=== PATIENT | male | born 1945 | race Caucasian/White ===

== ENCOUNTER → 2017-01-02 | Outpatient (CLI) | payer OTHER | LOC: FIMAGING 11:50 | PROVIDERS: ATTEND Internal Medicine Cardiovascular Disease | DX: Z13.89 Encounter for screening for other disorder (principal) ==

== ENCOUNTER 2017-03-20 07:06 | Inpatient (IN) | payer OTHER ==
[~2017-03-20 07:06] MED LIST: ROPIVACAINE 0.2% 80 MG, EPINEPHrine 0.2 MG in BAG 0 ML IU ONE; TRANEXAMIC ACID 3,000 MG in NS 50 ML IRR ONE
--- NOTE | 2017-03-20 07:27 | PDHPUP ---
History & Physical Update H&P update statement: This history and physical update is based on an assessment of the patient which was completed after admission or registration (within 24 hours), but prior to the surgery/procedure. H&P update: H&P reviewed & patient examined, no change in patient's condition since H&P completed
[2017-03-20] MEDS ORDERED: LR 1,000 ML IV ONE (07:28)
[2017-03-20] MEDS ORDERED: TRANEXAMIC ACID 3,000 MG/50 ML BAG IRR ONE (07:31)
[2017-03-20] MEDS ORDERED: DEXAMETHASONE 4 MG/ML VIAL IVP ONE (07:50)
[2017-03-20] MEDS ORDERED: FAMOTIDINE 20 MG TAB PO ONE (07:50)
[2017-03-20] MEDS ORDERED: ACETAMINOPHEN 325 MG TAB PO ONE (07:50)
[2017-03-20] MEDS ORDERED: ceFAZolin 2 GM/SWFI 2 GM/20 ML SYR IVP ONE (07:50)
--- NOTE | 2017-03-20 08:48 | PDANEPAE ---
ANE History of Present Illness r elicia ANE Past Medical History - Cardiovascular History Hx Hypertension: Yes Hx Arrhythmias: No Hx Chest Pain: No Hx Coronary Artery / Peripheral Vascular Disease: Yes Hx CHF / Valvular Disease: No Hx Palpitations: No Cardiovascular History Comment: AORTIC STENOSIS,avr repair 2015. RHEUMATIC FEVER - Pulmonary History Hx COPD: No Hx Asthma/Reactive Airway Disease: No Hx Recent Upper Respiratory Infection: No Hx Oxygen in Use at Home: Yes O2 in Use at Home (L/minute): 1.5L at noc Hx Sleep Apnea: No Sleep Apnea Screening Result - Last Documented: Positive - Neurologic History Hx Cerebrovascular Accident: No Hx Seizures: No Hx Dementia: No - Endocrine History Hx Diabetes: Yes Endocrine History Comment: NIDDM FOR 6 YRS - Renal History Hx Renal Disorders: Yes Renal History Comment: BPH - Liver History Hx Hepatic Disorders: No - Neurological & Psychiatric Hx Hx Neurological and Psychiatric Disorders: Yes Neurological / Psychiatric History Comment: 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 REMVL COLON POLYPS IN THE PAST - Other Health History Other Health History: PSEUDOGOUT LT KNEE. - Chronic Pain History Chronic Pain: No - Surgical History Prior Surgeries: RT KNEE QUADRICEPS TENDON REPAIR 04/2013. LT TOTAL HIP. LT ING HERNIA REPAIR X2. MICRODISKECTOMY. COLONOSCOPY WITH REMVL POLYPS. november 2015 valve replacement bovine ANE Review of Systems Review of systems is: negative Review of Systems: - Exercise capacity Exercise capacity: >=4 METS METS (RN): 4 METS ANE Patient History - Allergies Allergies/Adverse Reactions: aspirin Allergy (Verified 10/21/15 08:06) Rash NSAIDS (Non-Steroidal Anti-Inflamma Allergy (Verified 10/19/15 18:22) Penicillins Allergy (Verified 10/19/15 18:22) Rash - Home Medications Home Medications: Atorvastatin Calcium [Lipitor 40 mg (*)] 80 mg PO DAILY18 10/20/15 [Last Taken 11/27/15] Cyanocobalamin [Vitamin B12 (*)] 500 mcg PO DAILY 10/20/15 [Last Taken 03/06/17] Omeprazole [Prilosec 20 mg] 40 mg PO DAILY 10/20/15 [Last Taken 11/27/15] metFORMIN HCL [Glucophage 500 mg (*)] 1,000 mg PO BIDMEAL 10/20/15 [Last Taken 03/19/17] Ascorbic Acid [Vitamin C 500 mg (*)] 500 mg PO BID 02/11/17 [Last Taken 03/06/17 ] Dabigatran Etexilate Mesyl [Pradaxa 150 MG (*)] 150 mg PO BID 02/11/17 [Last Taken 03/19/17] Ferrous Sulfate [Ferrous Sulf 325 MG (*)] 325 mg PO BID 02/11/17 [Last Taken ] Furosemide [Lasix 40 MG (*)] 40 mg PO MWF 02/11/17 [Last Taken Unknown] Herbals/Supplements -Info Only 1 ea PO DAILY 02/11/17 [Last Taken 03/06/17] Lisinopril [Zestril 2.5 mg (*)] 2.5 mg PO HS 02/11/17 [Last Taken Unknown] Metoprolol Tartrate [Lopressor 25 mg (*)] 25 mg PO BID 02/11/17 [Last Taken Unknown] Multivitamins [Multivitamin (*)] 1 each PO DAILY 02/11/17 [Last Taken 03/06/17] Potassium Cl [Klor-Con 20 meq (*)] 20 meq PO MWF 02/11/17 [Last Taken Unknown] sitaGLIPtin PHOSPHATE [Januvia 100 MG (*)] 100 mg PO DAILY 02/11/17 [Last Taken 2 Months Ago ~01/18/17] - NPO status NPO Status: no food or drink >8 hours NPO Since - Liquids (Date): 03/19/17 NPO Since - Liquids (Time): 21:00 NPO Since - Solids (Date): 03/19/17 NPO Since - Solids (Time): 21:00 - Anes Hx Anes Hx: no prior problems - Smoking Hx Smoking Status: Never smoked - Alcohol Use Alcohol Use: None - Family Anes Hx Family Anes Hx: none Family Hx Anesthesia Complications: none ANE Labs/Vital Signs - Vital Signs Blood Pressure: 128/68 Heart Rate: 67 Respiratory Rate: 17 O2 Sat (%): 94 Height: 175.26 cm Weight: 91.172 kg ANE Physical Exam - Airway Mallampati Score: Class 2 - Pulmonary Pulmonary: no respiratory distress - Cardiovascular Cardiovascular: regular rate and rhythym - ASA Status ASA Status: III ANE Anesthesia Plan Anesthesia Plan: spinal
[2017-03-20] MEDS ORDERED: MIDAZOLAM 2 MG/2 ML VIAL ONE (08:51)
[2017-03-20] MEDS ORDERED: MIDAZOLAM 2 MG/2 ML VIAL IVP ONE (08:53)
[2017-03-20] MEDS ORDERED: PROPOFOL/EMULSION 500 MG/50 ML BOTTLE IV ONE (09:16)
[2017-03-20] MEDS ORDERED: LIDOCAINE 2% 5 ML SDV ONE (09:16)
[2017-03-20] MEDS ORDERED: PROPOFOL 200 MG/20 ML VIAL ONE (10:23)
[2017-03-20] MEDS ORDERED: ONDANSETRON 4 MG/2 ML VIAL ONE (10:37)
[2017-03-20] MEDS ORDERED: POLYETHYLENE GLYCOL 3350 17 GM PKT PO PRN (10:58)
[2017-03-20] MEDS ORDERED: diphenhydrAMINE 25 MG CAP PO PRN (10:58)
[2017-03-20] MEDS ORDERED: ONDANSETRON DISINTEGRATING 4 MG TAB PO PRN (10:58)
[2017-03-20] MEDS ORDERED: BISACODYL 10 MG SUPP PR PRN (10:58)
[2017-03-20] MEDS ORDERED: ONDANSETRON 4 MG/2 ML VIAL IVP PRN ×2 (10:58→10:59)
[2017-03-20] MEDS ORDERED: TEMAZEPAM 15 MG CAP PO PRN (10:58)
[2017-03-20] MEDS ORDERED: MAGNESIUM HYDROXIDE 30 ML UDCUP PO PRN (10:58)
[2017-03-20] MEDS ORDERED: METOCLOPRAMIDE 10 MG/2 ML VIAL IVP PRN (10:58)
[2017-03-20] MEDS ORDERED: PROMETHAZINE HCL 25 MG SUPPR PR PRN (10:58)
[2017-03-20] MEDS ORDERED: LACTULOSE 20 GM/30 ML UDCUP PO PRN (10:58)
[2017-03-20] MEDS ORDERED: PROMETHAZINE HCL 25 MG/ML INJ IVP PRN (10:58)
--- NOTE | 2017-03-20 10:58 | POSTOPPROG ---
Post Op Note Date of Operation: 03/20/17 Surgeon: Mauricio Clarke Technology Coordinator: alana clarke Anesthesiologist: Dr. Jean Baptiste Anesthesia: Spinal Pre-op Diagnosis: R hip OA Post-op Diagnosis: same Indication: R hp pain due to OA that failed conservative measures Procedure: R ELISSA ant approach Findings: R hip OA Inf/Abcess present in the surg proc area at time of surgery?: No EBL: 100-500
[2017-03-20] MEDS ORDERED: OXYCODONE/APAP 5/325 TAB PO PRN (10:59)
[2017-03-20] MEDS ORDERED: HYDROmorphONE/DILAUDID 1 MG/ML INJ IVP PRN (10:59)
[2017-03-20] MEDS ORDERED: ALBUTEROL 3 ML DEYVIAL IH PRN (10:59)
[2017-03-20] MEDS ORDERED: NALOXONE HCL 0.4 MG/ML INJ IVP PRN (10:59)
[2017-03-20] MEDS ORDERED: HYDROCODONE/APAP 5/325 TAB PO PRN (10:59)
[2017-03-20] MEDS ORDERED: LABETALOL HCL 5 MG/ML 20 ML MDV IVP PRN (10:59)
[2017-03-20] MEDS ORDERED: fentaNYL 100 MCG/2 ML INJ IVP PRN (10:59)
[2017-03-20] MEDS ORDERED: PHENYLEPHRINE HCL 100 MCG/ML SYR IVP PRN (10:59)
--- NOTE | 2017-03-20 10:59 | POSTANESTH ---
Post Anesthetic Evaluation Cardiovascular Status: Normal, Stable Respiratory Status: Normal, Stable Level of Consciousness/Mental Status: Can Participate in Eval Pain Control: Adequate, Prn Tx Ordered Nausea/Vomiting Control: Adequate, Prn Tx Ordered Complications Possibly Related to Anesthesia: None Noted
[2017-03-20] MEDS ORDERED: LR 1,000 ML IV SCH (11:00)
[2017-03-20] MEDS ORDERED: HYDROmorphONE/DILAUDID 1 MG/ML INJ ONE (11:40)
[2017-03-20] MEDS: ACETAMINOPHEN 325 MG TAB PO SCH ×2 (12:52→17:45)
[2017-03-20] MEDS: oxyCODONE IR 5 MG TAB PO PRN ×3 (12:52→20:41)
[2017-03-20] MEDS: metFORMIN HCL 500 MG TAB PO SCH (17:45)
[2017-03-20] MEDS: ceFAZolin 2 GM/DEXTROSE 100 ML IV SCH (17:46)
[2017-03-20] MEDS ORDERED: ATORVASTATIN CALCIUM 40 MG TAB PO SCH (18:00)
[2017-03-20] MEDS: FERROUS SULFATE 325 MG TAB PO SCH (20:28)
[2017-03-20] MEDS: FAMOTIDINE 20 MG TAB PO SCH (20:40)
[2017-03-20] MEDS: SENNOSIDES/DOCUSATE SODIUM TAB PO SCH (20:40)
[2017-03-20] MEDS: METOPROLOL TARTRATE 25 MG TAB PO SCH (20:43)
[2017-03-20] MEDS: CYCLOBENZAPRINE 10 MG TAB PO PRN (20:44)
[2017-03-21] MEDS: ACETAMINOPHEN 325 MG TAB PO SCH ×3 (01:16→11:02)
[2017-03-21] MEDS: ceFAZolin 2 GM/DEXTROSE 100 ML IV SCH (01:17)
[2017-03-21 04:26] VITALS: O2SAT 97
[2017-03-21 04:47] LABS: HEMATOCRIT 33.1 % (40.0-51.0); HEMOGLOBIN 10.7 g/dL (13.7-17.5)
[2017-03-21] MEDS: oxyCODONE IR 5 MG TAB PO PRN ×2 (05:59→11:02)
[2017-03-21] MEDS: CYCLOBENZAPRINE 10 MG TAB PO PRN (06:00)
[2017-03-21 07:57] VITALS: BP 113/68; PULSE 65; RESP 14; TEMP 97.6
[2017-03-21] MEDS: METOPROLOL TARTRATE 25 MG TAB PO SCH (08:06)
[2017-03-21] MEDS: metFORMIN HCL 500 MG TAB PO SCH (08:08)
[2017-03-21] MEDS: SENNOSIDES/DOCUSATE SODIUM TAB PO SCH (08:08)
[2017-03-21] MEDS: FAMOTIDINE 20 MG TAB PO SCH (08:09)
[2017-03-21] MEDS: FERROUS SULFATE 325 MG TAB PO SCH (08:10)
[2017-03-21] MEDS ORDERED: NON-FORMULARY NEW DRUG (Omeprazole [Prilosec 20 Mg] 40 MG) PO SCH (09:00)
[2017-03-21] MEDS ORDERED: DABIGATRAN ETEXILATE MESYL 150 MG CAP PO SCH (09:00)
[2017-03-21] MEDS ORDERED: Dapagliflozin Propanediol [Farxiga] 5 MG PO SCH (09:00)
[2017-03-21] MEDS ORDERED: PANTOPRAZOLE SODIUM 40 MG TAB PO SCH (09:00)
--- NOTE | 2017-03-21 12:00 | ASDISCHSUM ---
Discharge Information Plan Status:Home with No Needs Medically Cleared to Leave: Discharge Date:03/21/2017 11:24 AM CM D/C Disposition:Home, Routine, Self-Care ADT D/C Disposition:Home, Routine, Self-Care Projected Discharge Date:03/21/2017 11:24 AM Transportation at D/C: Discharge Delay Reason: Follow-Up Date:03/21/2017 11:24 AM Discharge Slot: Final Diagnosis: Placement Information Patient Contact Information Contact Name:FRANCOIS Relationship: Address:[address] [place] [address] [place] Alternate Phone: State/Zip Code:[place] [address] Email: Financial Information Financial Class: Primary Plan Desc:MEDICARE INPATIENT Primary Plan Number:[id number] Secondary Plan Desc:[employer] Secondary Plan Number:[id number] Assessment Information Intervention Information
--- NOTE | 2017-03-21 13:04 | SOAPPROG ---
[facility] Progress Note Assessment/Plan: Assessment: Plan: 03/21/17 13:03 Aniceto is doing well POD 1 s/p R ELISSA 1). pain management: pain well controlled on oral pain meds 2) VTE ppx: resume predaxa 3) anemia: level expected initially postop 4) d/c planning: d/c to home today pending release from PT Subjective: Aniceto is doing well today, denies SOB, chest pain and n/v. Objective: Vital Signs Temp Pulse Resp BP Pulse Ox 36.4 C 65 14 113/68 97 03/21/17 07:57 03/21/17 07:57 03/21/17 07:57 03/21/17 07:57 03/21/17 07:57 Laboratory Results 03/21/17 04:17 03/20/17 03/21/17 03/22/17 05:59 05:59 05:59 Intake Total 2285 Output Total 825 400 Balance 1460 -400 RLE: incision dressing is clean and dry, NVI, +pf/df ICD10 Worksheet Patient Problems: Problems Problem Status Onset Atrial fibrillation Acute Bradycardia Acute Chronic Disease Mgmt/Transitional Care Acute Elevated troponin Acute Postoperative atrial fibrillation Acute Primary localized osteoarthritis of right hip Acute S/P aortic valve replacement with bioprosthetic valve Acute Diabetes mellitus type 2 in obese Chronic Diastolic CHF, chronic Chronic Dyslipidemia Chronic Pulmonary hypertension Chronic Severe calcific aortic valve stenosis Chronic
--- NOTE | 2017-03-21 14:48 | GOP ---
[f rep st] OPERATIVE REPORT DATE OF OPERATION: 03/20/2017 SURGEON: Marta Estrada MD COFFEE GROWER: ELIF Contreras. PREOPERATIVE DIAGNOSIS: Right hip osteoarthritis. POSTOPERATIVE DIAGNOSIS: Right hip osteoarthritis. PROCEDURE PERFORMED: Right total hip arthroplasty with x-ray. FINDINGS: ESTIMATED BLOOD LOSS: 200 cc. INDICATIONS: The patient has progressively worsening arthritis of the hip which has failed medical management. The patient understands the treatment options including continued non-operative care and has selected surgical intervention. The patient has decided to undergo total hip arthroplasty via the direct anterior approach, understanding the risks of the procedure including , but not limited to, neurovascular injury, infection, persistent pain, component wear and loosening, deep venous thrombosis, pulmonary embolism, limb length inequality, hip instability (including dislocation), and intra-operative fractures. DESCRIPTION OF PROCEDURE: After proper identification of the patient including verification and marking the surgical site, the patient was brought to the operating room and placed in the supine position. All bony prominences were well padded. Anesthesia was induced without complication and intravenous prophylactic antibiotics were administered prior to skin incision. The operative leg was placed in the Trumpf Arch table extension and the well leg in a [place]in leg [place]. The patient was prepped and draped in the usual sterile fashion. The C-arm was draped for intra-operative fluoroscopy to check acetabular position, femoral component position including leg length and femoral offset. Attention was then drawn to surgical exposure of the hip. An incision was made with a #10 Bard Russell blade starting 3 cm lateral and 3 cm distal to the anterior superior iliac spine measuring 8-10 cm and coursing distally toward the greater trochanter. The skin and subcutaneous tissues were divided sharply down to the fascia pietro. The fascia pietro was incised in line with the skin incision exposing the underlying tensor fascia pietro muscle. The muscle was bluntly elevated from the fascia and the first extracapsular Cobra retractor was placed laterally at the junction of the superior femoral neck and greater trochanter. The lateral femoral circumflex vessels were identified, cauterized , and divided with the Aquamantys bipolar cautery. The deep investing fascia of the TFL was divided to allow proper mobilization of the muscle preventing damage during the retraction. The reflected head of the rectus femoris muscle was elevated off the anterior hip capsule and a medial Cobra retractor was placed just proximal to the lesser trochanter. The anterior capsulotomy was made sharply from the superolateral acetabulum to the saddle junction of the superior femoral neck and greater trochanter, then coursing inferomedial towards the lesser trochanter. The retractors were then placed in the intracapsular position for femoral neck osteotomy. Corresponding to pre-operative templating, the osteotomy was made with the oscillating saw carefully protecting the greater trochanter and soft tissues. The femoral head was removed from the acetabulum with a corkscrew and confirmed to be severely arthritic with exposed bone, deformity and osteophytes. Similar findings were confirmed in the acetabulum. The Arch table extension was then placed in 40 degrees external rotation. Attention was then drawn to the acetabular preparation. After placement of the anterior and posterior Cobra retractors outside the labrum and intracapsular, the circumferential labrum was removed sharply. The foveal contents were then removed and hemostasis obtained with cautery. The first reamer selected was sized using the removed femoral head. Reaming began with medialization and then commenced in 2 mm increments at 45 degrees of abduction and 15 degrees of anteversion using fluoroscopic navigation. Reaming ceased 1 mm less than the definitive acetabular component and corresponded to the pre-operative templating. The final acetabular component was inserted using fluoroscopy to achieve proper orientation yielding excellent purchase and stability in the acetabulum. The final acetabular liner was then placed and its seating confirmed. Attention was then turned to the femur. The Arch table extension was placed in extension and adduction, delivering the osteotomized femoral neck into the wound. A 2-pronged femoral elevator was placed at the calcar and another at the tip of the greater trochanter. The posterolateral capsule was released with cautery allowing mobilization of the femur lateral and anterior for preparation. The external rotators were visualized and preserved. A curette and rongeur were used to open the starting point for broaching. Serial broaching started with the #0 broach and ended with the broach that exhibited excellent fit in the proximal femur. A change in pitch during mallet strikes was accompanied by the inability to advance the broach any further. The trial reduction was performed and fluoroscopic navigation was utilized to check limb length. Adjustments were made to equalize limb length accordingly. After the final trials were accepted they were removed and the wound was copiously lavaged. The femoral component was seated to the same depth as the final broach and the femoral head was impacted onto the clean trunnion. The hip was then reduced for the final time and once more fluoroscopy was used to check that limb length equality was achieved. The wound was irrigated and closed in layers, the fascia pietro with 2-0 Quill, the subcutaneous tissue with 2-0 Quill, and the skin with Dermabond. Sterile dressings were applied. Final sharps and sponge counts were accurate. The patient was then transferred to a hospital bed and brought to the recovery room in stable condition. IMPLANTS: Accolade II size 5 at 127. Acetabular component a 58 mm Tritanium. Liner is a Trident X3, 36 mm. The head is a Biolox Delta 36 mm +5. /[id number]/MODL MTDD
[2017-03-21] MEDS ORDERED: LISINOPRIL 5 MG TAB PO SCH (21:00)
--- NOTE | 2017-03-22 00:41 | GDS ---
[f rep st] DISCHARGE SUMMARY ADMISSION DIAGNOSIS: Right hip osteoarthritis. DISCHARGE DIAGNOSIS: Right hip osteoarthritis. PROCEDURE: Right total hip arthroplasty. VTE PROPHYLAXIS: Recommend patient resume Pradaxa. BRIEF DESCRIPTION OF HOSPITAL STAY: Patient was admitted for an elective joint arthroplasty. The pa tient tolerated the procedure well and has passed physical therapy. The patient was given appropriat e antibiotic prophylaxis and venous thromboembolism prophylaxis. The patient's pain was well control led on oral pain medication, patient was holding down food, and had urinated. Decision was made to d ischarge the patient. The patient was given postoperative prescriptions preoperatively. PLAN: Please follow up as scheduled in Dr. Estrada's office April 18 at 2 p.m. /[id number]/MODL
[2017-03-22] MEDS ORDERED: POTASSIUM CL 20 MEQ TAB PO SCH (08:00)
[2017-03-22] MEDS ORDERED: FUROSEMIDE 40 MG TAB PO SCH (08:00)
== END 2017-03-21 11:24 | disposition home or self-care (01) | DRG 470 ==
LOC: F3N 07:06
PROVIDERS: ADMIT Orthopaedic Surgery; ATTEND Orthopaedic Surgery
PROC: 0SR904Z Replacement of Right Hip Joint with Ceramic on Polyethylene Synthetic Substitute, Open Approach (ICD-10-PCS; principal; 2017-03-20 09:15)
DX: M16.11 Unilateral primary osteoarthritis, right hip (principal); I25.10 Atherosclerotic heart disease of native coronary artery without angina pectoris; I48.0 Paroxysmal atrial fibrillation; I10 Essential (primary) hypertension; Z95.2 Presence of prosthetic heart valve
CPT/HCPCS: 97116-GP; 97161-GP; 97165-GO; G8978-GP-CI; G8978-GP-CJ; G8979-GP-CI; G8980-GP-CI; G8987-GO-CI; G8988-GO-CI; G8989-GO-CI; J0171; J0690; J1100; J1170; J2250; J2370; J2405; J2704; J2795

== ENCOUNTER → 2017-07-13 | Outpatient (CLI) | payer OTHER | LOC: FIMAGING 12:33 | PROVIDERS: ATTEND Family Medicine | DX: J40 Bronchitis, not specified as acute or chronic (principal); M48.14 Ankylosing hyperostosis [Forestier], thoracic region ==

== ENCOUNTER → 2018-07-16 | Outpatient (CLI) | payer OTHER | LOC: FIMAGING 13:32 | PROVIDERS: ATTEND Orthopaedic Surgery | DX: M17.12 Unilateral primary osteoarthritis, left knee (principal) ==

== ENCOUNTER 2018-07-23 11:00 | Inpatient (IN) | payer OTHER ==
[~2018-07-23 11:00] MED LIST changes: -ROPIVACAINE 0.2% 80 MG, EPINEPHrine 0.2 MG in BAG 0 ML IU ONE; +ROPIVACAINE 0.2% 80 MG, EPINEPHrine 0.2 MG, KETOROLAC TROMETHAMINE 30 MG in SYRINGE 0 ML IU ONE; +TRANEXAMIC ACID 3,000 MG in NS (SYRINGE) 50 ML IRR ONE; -TRANEXAMIC ACID 3,000 MG in NS 50 ML IRR ONE; +TRANEXAMIC ACID 3,000 MG/50 ML BAG IRR ONE
[2018-07-23] MEDS ORDERED: ACETAMINOPHEN 325 MG TAB PO ONE (12:01)
[2018-07-23] MEDS ORDERED: ceFAZolin 2 GM/DEXTROSE 100 ML IV ONE (12:01)
[2018-07-23] MEDS ORDERED: FAMOTIDINE 20 MG TAB PO ONE (12:01)
[2018-07-23] MEDS ORDERED: LR 1,000 ML IV ONE (12:16)
[2018-07-23] MEDS ORDERED: MIDAZOLAM 2 MG/2 ML VIAL IVP ONE (12:59)
[2018-07-23] MEDS ORDERED: PROMETHAZINE HCL 25 MG/ML INJ IVP PRN ×2 (13:02→15:48)
[2018-07-23] MEDS ORDERED: oxyCODONE IR 5 MG TAB PO PRN (13:02)
[2018-07-23] MEDS ORDERED: HYDROCODONE/APAP 5/325 TAB PO PRN (13:02)
[2018-07-23] MEDS ORDERED: NALOXONE HCL 0.4 MG/ML INJ IVP PRN (13:02)
[2018-07-23] MEDS ORDERED: fentaNYL 100 MCG/2 ML INJ IVP PRN (13:02)
[2018-07-23] MEDS ORDERED: LR 500 ML IV PRN (13:02)
[2018-07-23] MEDS ORDERED: ACETAMINOPHEN 500 MG TAB PO PRN (13:02)
--- NOTE | 2018-07-23 13:02 | PDANEPAE ---
ANE Past Medical History - Cardiovascular History Hx Hypertension: Yes Hx Arrhythmias: No Hx Chest Pain: No Hx Coronary Artery / Peripheral Vascular Disease: Yes Hx CHF / Valvular Disease: No Hx Palpitations: No Cardiovascular History Comment: AORTIC STENOSIS,avr repair 2015. RHEUMATIC FEVER - Pulmonary History Hx COPD: No Hx Asthma/Reactive Airway Disease: No Hx Recent Upper Respiratory Infection: No Hx Oxygen in Use at Home: Yes O2 in Use at Home (L/minute): NOC O2 1.5 L Hx Sleep Apnea: No Sleep Apnea Screening Result - Last Documented: Positive Pulmonary History Comment: PULM HTN - Neurologic History Hx Cerebrovascular Accident: No Hx Seizures: No Hx Dementia: No - Endocrine History Hx Diabetes: Yes Obesity: mild Endocrine History Comment: NIDDM FOR 6 YRS - Renal History Hx Renal Disorders: Yes Renal History Comment: BPH - Liver History Hx Hepatic Disorders: No - Neurological & Psychiatric Hx Hx Neurological and Psychiatric Disorders: Yes Neurological / Psychiatric History Comment: MILD NEUROPATHY IN TOES - Cancer History Hx Cancer: No - Congenital Disorder History Hx Congenital Disorders: No - GI History GERD: no Hx Gastrointestinal Disorders: Yes Gastrointestinal History Comment: REFLUX. REMVL COLON POLYPS IN THE PAST - Other Health History Other Health History: PSEUDOGOUT LT KNEE. - Chronic Pain History Chronic Pain: No - Surgical History Prior Surgeries: RT KNEE QUADRICEPS TENDON REPAIR 04/2013. LT TOTAL HIP. LT ING HERNIA REPAIR X2. MICRODISKECTOMY. COLONOSCOPY WITH REMVL POLYPS. november 2015 valve replacement bovine ANE Review of Systems Review of Systems: - Exercise capacity METS (RN): 4 METS ANE Patient History - Allergies Allergies/Adverse Reactions: aspirin Allergy (Verified 07/23/18 12:07) Rash NSAIDS (Non-Steroidal Anti-Inflamma Allergy (Verified 07/23/18 12:07) Other-Enter Comments Penicillins Allergy (Verified 07/23/18 12:07) Rash - Home Medications Home medications: home medication list seen and reviewed Home Medications: Atorvastatin Calcium [Lipitor 40 mg (*)] 40 mg PO DAILY18 10/20/15 [Last Taken 07/22/18 22:30] Cyanocobalamin [Vitamin B12 (*)] 500 mcg PO DAILY 10/20/15 [Last Taken 07/16/18] Ascorbic Acid [Vitamin C 500 mg (*)] 500 mg PO DAILY 02/11/17 [Last Taken ] Dabigatran Etexilate Mesyl [Pradaxa 150 MG (*)] 150 mg PO BID 02/11/17 [Last Taken 07/18/18] Herbals/Supplements -Info Only 1 ea PO DAILY 02/11/17 [Last Taken 07/16/18] Metoprolol Tartrate [Lopressor 25 mg (*)] 25 mg PO BID 02/11/17 [Last Taken 01/31 09:00] sitaGLIPtin PHOSPHATE [Januvia 100 MG (*)] 100 mg PO DAILY 02/11/17 [Last Taken 07/22/18 08:00] Dapagliflozin Propanediol [Farxiga] 10 mg PO DAILY 03/20/17 [Last Taken 07/21/18 ] Bimatoprost 0.01% [Lumigan 0.01% (*)] 1 drops EACHEYE HS 07/14/18 [Last Taken 22:30] Lisinopril [Zestril 2.5 mg (*)] 2.5 mg PO DAILY 07/14/18 [Last Taken 07/22/18 22 :30] Omeprazole 40 mg PO DAILY 07/14/18 [Last Taken 07/23/18 09:00] metFORMIN HCL [Glucophage 500 mg (*)] 500 mg PO BIDMEAL 07/14/18 [Last Taken 01/01 22:30] - NPO status NPO Status: no food or drink >8 hours NPO Since - Liquids (Date): 07/23/18 NPO Since - Liquids (Time): 10:30 NPO Since - Solids (Date): 07/22/18 NPO Since - Solids (Time): 22:30 - Anes Hx Anes Hx: no prior problems - Smoking Hx Smoking Status: Never smoked - Family Anes Hx Family Hx Anesthesia Complications: none ANE Labs/Vital Signs - Vital Signs Blood Pressure: 135/77 Heart Rate: 64 Respiratory Rate: 16 O2 Sat (%): 94 Height: 173.99 cm Weight: 90.718 kg ANE Physical Exam - Airway Neck exam: FROM Mallampati Score: Class 2 Mouth exam: normal dental/mouth exam - Pulmonary Pulmonary: no respiratory distress, no rales or rhonchi, clear to auscultation - Cardiovascular Cardiovascular: regular rate and rhythym - ASA Status ASA Status: III ANE Anesthesia Plan Anesthesia Plan: spinal Regional Anesthesia: adductor canal FNB
[2018-07-23] MEDS ORDERED: BUPIVACAINE/EPI 0.25% 30 ML SDV ONE (13:21)
[2018-07-23] MEDS ORDERED: PROPOFOL 200 MG/20 ML VIAL ONE (13:56)
[2018-07-23] MEDS ORDERED: BUPIVACAINE/DEXTROSE 7.5MG/ML 2 ML SPINAL AMP SP ONE (14:27)
[2018-07-23] MEDS ORDERED: METOCLOPRAMIDE 10 MG/2 ML VIAL IVP PRN (15:48)
[2018-07-23] MEDS ORDERED: POLYETHYLENE GLYCOL 3350 17 GM PKT PO PRN (15:48)
[2018-07-23] MEDS ORDERED: MAGNESIUM HYDROXIDE 30 ML UDCUP PO PRN (15:48)
[2018-07-23] MEDS ORDERED: ONDANSETRON 4 MG/2 ML VIAL IVP PRN (15:48)
[2018-07-23] MEDS ORDERED: ONDANSETRON DISINTEGRATING 4 MG TAB PO PRN (15:48)
[2018-07-23] MEDS ORDERED: PROMETHAZINE HCL 25 MG SUPPR PR PRN (15:48)
[2018-07-23] MEDS ORDERED: diphenhydrAMINE 25 MG CAP PO PRN (15:48)
[2018-07-23] MEDS ORDERED: DIPHENOXYLATE/ATROPINE LOMOTIL 1 TAB PO PRN (15:48)
[2018-07-23] MEDS ORDERED: BISACODYL 10 MG SUPP PR PRN (15:48)
[2018-07-23] MEDS ORDERED: LACTULOSE 20 GM/30 ML UDCUP PO PRN (15:48)
[2018-07-23] MEDS ORDERED: TEMAZEPAM 15 MG CAP PO PRN (15:48)
--- NOTE | 2018-07-23 15:48 | POSTOPPROG ---
Post Op Note Date of Operation: 07/23/18 Surgeon: Mauricio Estrada Machine Maintenance Supervisor: Rafaela Jones PAC Anesthesiologist: Dr. Rodrick Umanzor Anesthesia: Spinal, Other (Specify) (adductor canal block) Pre-op Diagnosis: left knee OA Post-op Diagnosis: same Indication: left knee pain Procedure: LTKA, robot assisted Findings: severe OA of left knee Inf/Abcess present in the surg proc area at time of surgery?: No EBL: 50-100
[2018-07-23] MEDS ORDERED: D50W 25 GM/50 ML SYR IVP PRN (15:53)
[2018-07-23] MEDS ORDERED: LR 1,000 ML IV SCH (16:00)
--- NOTE | 2018-07-23 16:05 | POSTANESTH ---
Post Anesthetic Evaluation Cardiovascular Status: Normal, Stable, Similar to Pre-Op Cond Respiratory Status: Normal, Stable, Similar to Pre-op Cond. Level of Consciousness/Mental Status: Can Participate in Eval, Alert and Oriented Pain Control: Adequate, Prn Tx Ordered Nausea/Vomiting Control: Adequate, Prn Tx Ordered Complications Possibly Related to Anesthesia: None Noted (Adductor canal nerve block performed in PACU without complications.)
[2018-07-23] MEDS: CYCLOBENZAPRINE 10 MG TAB PO PRN (17:26)
[2018-07-23] MEDS ORDERED: ATORVASTATIN CALCIUM 40 MG TAB PO SCH (18:00)
[2018-07-23] MEDS: INSULIN REGULAR HUMAN 100 UNIT/ML UNIT SC SCH ×2 (18:20→23:09)
[2018-07-23] MEDS: metFORMIN HCL 500 MG TAB PO SCH (18:20)
[2018-07-23] MEDS: oxyCODONE IR 5 MG TAB PO PRN (19:21)
[2018-07-23] MEDS: DABIGATRAN ETEXILATE MESYL 150 MG CAP PO SCH (21:00)
[2018-07-23] MEDS ORDERED: BIMATOPROST 0.01% 2.5 ML OPHT.BTL EACHEYE SCH (21:00)
[2018-07-23] MEDS: ceFAZolin 2 GM/DEXTROSE 100 ML IV SCH (22:00)
[2018-07-23] MEDS: FAMOTIDINE 20 MG TAB PO SCH (22:01)
[2018-07-23] MEDS: SENNOSIDES/DOCUSATE SODIUM TAB PO SCH (22:01)
[2018-07-23] MEDS: METOPROLOL TARTRATE 25 MG TAB PO SCH (22:01)
[2018-07-23] MEDS: ACETAMINOPHEN 325 MG TAB PO SCH (22:01)
[2018-07-24] MEDS: CYCLOBENZAPRINE 10 MG TAB PO PRN ×2 (01:06→09:52)
[2018-07-24] MEDS: oxyCODONE IR 5 MG TAB PO PRN ×4 (01:11→12:17)
[2018-07-24] MEDS: ACETAMINOPHEN 325 MG TAB PO SCH ×2 (04:26→09:51)
[2018-07-24] MEDS: ceFAZolin 2 GM/DEXTROSE 100 ML IV SCH (05:26)
[2018-07-24] MEDS: DABIGATRAN ETEXILATE MESYL 150 MG CAP PO SCH (07:48)
[2018-07-24] MEDS: metFORMIN HCL 500 MG TAB PO SCH (07:48)
[2018-07-24] MEDS: SENNOSIDES/DOCUSATE SODIUM TAB PO SCH (07:48)
[2018-07-24] MEDS: METOPROLOL TARTRATE 25 MG TAB PO SCH (07:49)
[2018-07-24] MEDS: FAMOTIDINE 20 MG TAB PO SCH (07:50)
[2018-07-24] MEDS: INSULIN REGULAR HUMAN 100 UNIT/ML UNIT SC SCH ×2 (07:50→11:36)
--- NOTE | 2018-07-24 08:27 | GOP ---
[f rep st] OPERATIVE REPORT DATE OF OPERATION: 07/23/2018 SURGEON: Marta Estrada MD EAP SPECIALIST: RHONDA Diaz. ANESTHESIA: Spinal. PREOPERATIVE DIAGNOSIS: Left knee osteoarthritis. POSTOPERATIVE DIAGNOSIS: Left knee osteoarthritis. PROCEDURE PERFORMED: Left total knee arthroplasty with computer navigation, robotic assist. FINDINGS: ESTIMATED BLOOD LOSS: 30 cc. INDICATIONS: The patient is a 72-year-old male with severe and progressive pain and deformity of the left knee unresponsive to conservative care. The risks and benefits of surgical intervention were e xplained in detail. DESCRIPTION OF PROCEDURE: The patient was brought to the operative room and placed on the table in t he supine position. Spinal anesthesia was induced without difficulty. A pneumatic tourniquet was appl ied about the left proximal thigh, and the leg was prepped and draped in a sterile fashion. The leg h older was applied. After exsanguination by elevation the tourniquet was inflated to 250 mmHg. Incision was made anterior medial from the tibial tuberosity to a point 2 cm proximal to the superior pole of the patella. Medial parapatellar arthrotomy was carried out from the superior pole of the pa tella and posteriorly in line with the fibers of the type II VMO. The medial collateral ligament was elevated and the infrapatellar fat pad was resected. The patella was everted and the articular surface was excised. A 38 mm patellar button was placed. Attention was turned first to the distal aspect of the femur. After exposure of the femur, 2 half pi ns were placed for fixation of the femoral array. In a similar fashion, 2 pins were placed anteromed ial on the tibia for fixation of the tibial array. External land marking and registration of the hip center was performed without difficulty. Internal femoral and tibial registration was carried out w ithout difficulty and the femoral and tibial checkpoints were placed and verified for accuracy. Attention was turned to the femur. The foot print for the size 6 femoral component was cut with the saw using the QVIVO robotic system and verified for accuracy against the CT based plan. In a similar f ashion, the saw was used to cut the footprint for the size 7 tibial component using the QVIVO system an d verified for accuracy against the CT based plan. The tibial articular surface was excised without d ifficulty, followed by the intercondylar box cut. The knee was extended and the remnants of the medial and lateral meniscus were excised. The posterior capsule was injected with ropivacaine, epinephrine and Toradol. A size 7 tibial tray was positioned . Trial reduction was then carried out. There was excellent range of motion, alignment, and stability using the 7 x 9 mm polyethylene. All trials were then removed. The joint was thoroughly irrigated and carefully dried. The press-fit c omponents were implanted. The permanent 7 x 9 mm polyethylene was placed without difficulty. The tourniquet was deflated and all bleeders were coagulated. The wound was thoroughly irrigated and closed using interrupted sutures of 2-0 Vicryl for the joint capsule. The subcu was closed with 3-0 V icryl and the skin with 4-0 Monocryl. Dermabond and Steri-Strips were applied followed by a compress sanjana dressing. The patient was then moved from the operating room to the recovery room in good conditi on, having tolerated the procedure well. ANESTHESIA: Spinal. TOURNIQUET: 250 mmHg. PATHOLOGY: Severe tricompartmental osteoarthritis. /[id number]/MODL
[2018-07-24] MEDS ORDERED: Dapagliflozin Propanediol [Farxiga] 10 MG PO SCH (09:00)
[2018-07-24] MEDS ORDERED: LISINOPRIL 2.5 MG TAB PO SCH (09:00)
--- NOTE | 2018-07-24 09:33 | PDMN ---
Medical Necessity Medical necessity: Pt meets IP criteria per PA; est los >2 mn s/p L TKA (cpt 89761); recommending IP due to hx of diabetes, HTN, chronic anticoagulation therapy & CAD; per order 07/23/18
--- NOTE | 2018-07-24 10:12 | SOAPPROG ---
SOAP Progress Note Assessment/Plan: Assessment: Patient is doing well. POD 1 s/p left TKA, robot assist Plan: Pain management: pain is well controlled on oral pain meds - oxycodone, celebrex. He would like to get script for Flexeril when he is d/c. VTE ppx: will resume Pradaxa today. He will cont CLYDE and SCDs in hospital. CLYDE hose at home x 2 weeks Anemia: level is expected initially postop. Asymptomatic. Continue to monitor D/C planning: Patient has done better than anticipated and would like to be discharged to home today. Patient must be released from PT before discharge to home. 07/24/18 10:09 Subjective: Patient states he is doing pretty good this morning. He has noticed pain/ tightness in his hamstrings especially when he tries to use the ZeroKnee; it is tolerable when he takes Flexeril and would like to get a script for then when he leaves the hospital. Patient states he feels well enough to go home. Patient denies shortness of breath, chest pain, fever, chills. Objective: Vital Signs Temp Pulse Resp BP Pulse Ox 36.6 C 65 16 111/75 95 07/24/18 07:24 07/24/18 07:24 07/24/18 07:24 07/24/18 07:24 07/24/18 07:24 Laboratory Results 07/24/18 05:13 07/23/18 07/24/18 07/25/18 05:59 05:59 05:59 Intake Total 2645 425 Output Total 625 Balance 2020 425 Patient resting comfortably in bed, no acute distress. LLE: Wound dressings are clean, dry and intact. Lower leg compartments are soft and nontender. Patient can actively DF and PF left foot and great toe against resistance. Grossly NVI distally. ICD10 Worksheet Patient Problems: Problems Problem Status Onset Unilateral primary osteoarthritis, left knee Acute Atrial fibrillation Acute Bradycardia Acute Chronic Disease Mgmt/Transitional Care Acute Crushing injury of finger of left hand Acute Elevated troponin Acute Fracture of phalanx of left index finger Acute Fracture of phalanx of left middle finger Acute Postoperative atrial fibrillation Acute Primary localized osteoarthritis of right hip Acute S/P aortic valve replacement with bioprosthetic valve Acute Diabetes mellitus type 2 in obese Chronic Diastolic CHF, chronic Chronic Dyslipidemia Chronic Pulmonary hypertension Chronic Severe calcific aortic valve stenosis Chronic
--- NOTE | 2018-07-24 10:21 | PDDCSUM ---
Discharge Summary Discharge Summary: ADMISSION DIAGNOSIS: Left knee severe degenerative arthritis DISCHARGE DIAGNOSIS: Left knee severe degenerative arthritis OPERATION PERFORMED: July 23, 2018 Left total knee arthroplasty, Mariano robot assisted. POSTOPERATIVE COMPLICATIONS: None CONDITION ON DISCHARGE: Improved DESCRIPTION OF HOSPITAL COURSE: The patient was admitted to the hospital on the morning of surgery and underwent a left total knee arthroplasty, Mariano robot assisted. Postoperatively, patient was treated with multimodal DVT prophylaxis, including his normal Pradaxa, CLYDE hose and SCDs. Patient was seen by PT and made good progress with ambulation and stairs. On the first post-operative day the patients H&H was 11.8/36.8. Patient was able to void spontaneously. At the time of discharge, patient was afebrile, wound was clean and dry. Patient is walking with a walker. DISPOSITION: The patient is doing better than expected and will be discharged home with the support of his . He will start outpatient PT in the next 1-2 weeks. Patient may progress to full weightbearing on the left lower extremity as tolerated. CLYDE stockings for 2 weeks during the day time. He will resume is normal Pradaxa for VTE prophylaxis. Patient has prescriptions for Celebrex, oxycodone for pain control. Flexeril was also prescribed to help decrease muscle spasms. The patient will be seen by Dr. Campbell office on 08/14/18. If there are any problems, patient is to call Dr. Campbell office.
--- NOTE | 2018-07-24 10:29 | ASMTLACE ---
LACE Length of stay for Answers: 2 days current admission Acuity / Level of Answers: Yes Care: Did the patient have an inpatient admission? Comorbidities - select Answers: Congestive heart failure all that apply Diabetes (uncontrolled or controlled) # of Emergency department Answers: 0 visits in the last 6 months Score: 8 Date Signed: 07/24/2018 10:29 AM Electronically Signed By:CANDIDA Ivey
[2018-07-24 11:25] VITALS: BP 111/85
== END 2018-07-24 13:35 | disposition home or self-care (01) | DRG 470 ==
LOC: F3N 11:36
PROVIDERS: ADMIT Orthopaedic Surgery; ATTEND Orthopaedic Surgery
DX: M17.12 Unilateral primary osteoarthritis, left knee (principal); I10 Essential (primary) hypertension; I27.20 Pulmonary hypertension, unspecified; E11.9 Type 2 diabetes mellitus without complications; N40.0 Benign prostatic hyperplasia without lower urinary tract symptoms; K21.9 Gastro-esophageal reflux disease without esophagitis; Z95.3 Presence of xenogenic heart valve; Z96.649 Presence of unspecified artificial hip joint
CPT/HCPCS: 97116-GP; 97161-GP; J0171; J0690; J1815; J1885; J2250; J2704; J2795